=== PATIENT | male | born 1975 | race Caucasian/White ===

== ENCOUNTER 2021-06-08 21:02 | Emergency (ER) | payer OTHER ==
[~2021-06-08] VITALS: Ht 182.9 cm; Wt 90.9 kg
[2021-06-08] MEDS ORDERED: ACETAMINOPHEN 500 MG TABLET PO ONE (22:00)
[2021-06-08] MEDS ORDERED: diphenhydrAMINE 50 MG/ML VIAL IVP ONE (22:00)
[2021-06-08] MEDS ORDERED: IV NORMAL SALINE 1,000ML 1,000 ML IV ONE (22:00)
[2021-06-08] MEDS ORDERED: METOCLOPRAMIDE HCL 10 MG/2 ML VIAL. IVP ONE (22:00)
[2021-06-08] MEDS ORDERED: KETOROLAC 30 MG/ML VIAL. IVP ONE (22:00)
--- NOTE | 2021-06-08 22:05 | PHYS DOC ---
General Adult EDM: Chief Complaint: INSECT BITE HPI: HPI: 46-year-old male presents with fever, headache, insect bite of the left lower leg. Patient believes he was bit by a spider sometime yesterday. This morning he developed headache and fever. Has had a fever all day. He also has a dry intermittent cough. Patient was fully vaccinated against COVID-19 with his second shot in December. The patient has been taking ibuprofen and the fever improves but does not go away. Last dose was 6 hours ago. Review of Systems: Review of Systems: Constitutional: Fever, body aches. Eyes: Denies change in visual acuity HENT: Denies nasal congestion or sore throat Respiratory: Cough without shortness of breath Cardiovascular: Denies chest pain or edema GI: Denies abdominal pain, nausea, vomiting, bloody stools or diarrhea : Denies dysuria Musculoskeletal: Denies back pain or joint pain Integument: Insect bite medial left lower leg Neurologic: Headache. Denies focal weakness or sensory changes Endocrine: Denies polyuria or polydipsia Lymphatic: Denies swollen glands Psychiatric: Denies depression or anxiety Current Medications: Current Meds: Current Medications Medications (Trade) Dose Ordered Sig/Bell Start Time Stop Time Status Last Admin Dose Admin Acetaminophen (Tylenol) 1,000 mg 1X ONCE 06/08/21 22:00 06/08/21 22:01 UNV Diphenhydramine HCl (Benadryl) 25 mg 1X ONCE 06/08/21 22:00 06/08/21 22:01 UNV Ketorolac Tromethamine (Toradol 30mg Vial) 30 mg 1X ONCE 06/08/21 22:00 06/08/21 22:01 UNV Metoclopramide HCl (Reglan Vial) 10 mg 1X ONCE 06/08/21 22:00 06/08/21 22:01 UNV Sodium Chloride 1,000 ml @ 1,000 mls/hr 1X ONCE 06/08/21 22:00 06/08/21 22:59 UNV Physical Exam: PE: Constitutional: Well developed, well nourished, no acute distress, non-toxic appearance. [] HENT: Normocephalic, atraumatic, bilateral external ears normal, oropharynx moist, no oral exudates, nose normal. [] Eyes: PERRLA, EOMI, conjunctiva normal, no discharge. [] Neck: Normal range of motion, no tenderness, supple, no stridor. [] Cardiovascular:Heart rate regular rhythm, no murmur [] Lungs & Thorax: Bilateral breath sounds clear to auscultation [] Abdomen: Bowel sounds normal, soft, no tenderness, no masses, no pulsatile ma sses. [] Skin: Warm, dry, no erythema, no rash. [] Back: No tenderness, no CVA tenderness. [] Extremities: No tenderness, no cyanosis, no clubbing, ROM intact, no edema. [] Neurologic: Alert and oriented X 3, normal motor function, normal sensory function, no focal deficits noted. [] Psychologic: Affect normal, judgement normal, mood normal. [] EKG: EKG: [] Radiology/Procedures: Radiology/Procedures: [] Impressions: EXAMINATION: Chest radiograph. VIEWS: Single AP view COMPARISON: None INDICATION:46 years, Male, fever, cough. FINDINGS: Normal cardiomediastinal silhouette. No focal consolidation. No pleural effusion or pneumothorax. No acute osseous process. IMPRESSION: No acute cardiopulmonary process. Electronically signed by: Aydin Guzman DO (06/08/2021 11:03 PM) [facility] DICTATED AND SIGNED BY: AYDIN GUZMAN DO DATE: 06/08/212302 CC: SHAYY CUEVA DO; PCP,UNKNOWN ~MTH0 0 Heart Score: C/O Chest Pain: N/A Risk Factors: Risk Factors: DM, Current or recent (<one month) smoker, HTN, HLP, family history of CAD, obesity. Risk Scores: Score 0 - 3: 2.5% MACE over next 6 weeks - Discharge Home Score 4 - 6: 20.3% MACE over next 6 weeks - Admit for Clinical Observation Score 7 - 10: 72.7% MACE over next 6 weeks - Early Invasive Strategies Course & Med Decision Making: Course & Med Decision Making Pertinent Labs and Imaging studies reviewed. (See chart for details) The patient's chest x-ray is negative for acute findings. I will treat him with Rocephin in the emergency room and Keflex prescription due to the cellulitis around his insect bite. Patient's labs are significant for a white count of 3.9 with a left shift. Creatinine 1.5. The patient does appear clinically dry. He was given a liter of normal saline. I do not believe the insect bite is likely to be the patient's symptoms. This could be COVID-19. [] Rubion Disclaimer: Raeann Disclaimer: This electronic medical record was generated, in whole or in part, using a voice recognition dictation system. Departure Departure: Impression: Primary Impression: Cellulitis Qualified Codes: L03.116 - Cellulitis of left lower limb Additional Impression: Suspected COVID-19 virus infection Disposition: HOME / SELF CARE / HOMELESS Condition: STABLE Referrals: PCP,UNKNOWN (PCP) Patient Instructions: Cellulitis, [id number] Additional Instructions: You have been tested for or diagnosed with COVID-19. It is an infection caused by a new type of coronavirus. COVID-19 will cause cold-like or mild flu symptoms in most. It can cause more severe symptoms like problems breathing in some. There is no treatment for COVID-19. The body will clear the infection over time. Self-care will help to ease discomfort. Steps to Take: Self-Care Rest as needed. Healthy habits may help you feel better. Steps include: Choose healthy foods including fruits and vegetables. Drink water throughout the day. Get plenty of sleep each night. If you smoke, try to quit. It may ease breathing. Avoid alcohol. Keep Others Healthy The virus can spread to others. Droplets are released every time you sneeze or cough. The droplets can get into the mouth, nose, or eyes of people near you and lead to infection. To lower the chances of spreading COVID-19 to others: Stay at home until your doctor has said it is safe to leave. If you tested positive this will mean staying isolated until both of the following are true: At least 7 days have passed since the start of illness. You are free of fever for at least 72 hours without the use of medicine. During this time: - Avoid public areas, events, or transportation. Do not return to work or school until your doctor has said it is safe to do so. - Call ahead if you need to go to a medical center. Let them know you may have COVID-19. It will help them guide you where to go. They may also ask you to wear a facemask when you come to the office. - If you call for emergency medical services, let them know you may have COVID- 19. While at home: - Try to avoid close contact with others. Stay about 6 feet away. - If possible, spend most of your time in a separate room from others. - Use a face mask if you will be in close contact with others such as sharing a room or vehicle. - Have someone wipe down common surfaces in the home. Use household dump motorman every day on areas like doorknobs, counters, or sinks. - Cough or sneeze into a tissue. Throw the tissue away right after use. If a tissue is not available, cough or sneeze into your elbow. - Wash your hands often. Wash them after sneezing or coughing. Use soap and water and wash for at least 20 seconds. Alcohol based hand pillowcase cleaner can be used if soap and water is not available. - Do not prepare food for others. Avoid sharing personal items like forks, spoons, or toothbrushes. - Avoid close contact with pets while you are sick. There is no evidence of the virus passing to pets. This is a safety step until more is known about this virus. Isolation can be frustrating. Social interaction can help. Keep in touch with friends and family through phone and tech options. You can still interact with others in your home, just keep a safe distance of about 6 feet. Follow-up: Your doctors office will check in with you to see if there are any changes in your health. You may be asked to keep track of symptoms to share with them. They will also let you know when you are clear to be in public again. Problems to Look Out For: Contact your doctor if your recovery is not going as you expect. Get emergency care if you have problems such as: - Trouble breathing - Nonstop chest pain or pressure - Changes in awareness, confusion, or problems waking - Lips or face have bluish color - Worsening of symptoms If you think you have an emergency, call for emergency medical services right away. As taken from [facility] Cephalexin (CEPHALEXIN) 500 Mg Tablet 1 TAB PO TID for cellulitis for 7 Days, #21 TAB Prov: SHAYY CUEVA DO 06/08/21 SHAYY CUVEA DO Jun 08, 2021 22:05
--- NOTE | 2021-06-08 23:06 | RAD ---
EXAMINATION: Chest radiograph. VIEWS: Single AP view COMPARISON: None INDICATION:46 years, Male, fever, cough. FINDINGS: Normal cardiomediastinal silhouette. No focal consolidation. No pleural effusion or pneumothorax. No acute osseous process. IMPRESSION: No acute cardiopulmonary process. Electronically signed by: Kody Fu DO (06/08/2021 11:03 PM) [facility]
[2021-06-08 23:30] LABS: BASO % 0 % (0-3); EOS % 0 % (0-3); HEMATOCRIT 43.4 % (39.0-53.0); HEMOGLOBIN 14.8 g/dL (13.0-17.5); LYMPH # 0.3 x10^3/uL (1.0-4.8); LYMPH % 7 % (24-48); MEAN CORPUSCULAR HEMOGLOBIN 32 pg (25-35); MEAN CORPUSCULAR HGB CONC 34 g/dL (31-37); MEAN CORPUSCULAR VOLUME 94 fL (79-100); MONO # 0.5 x10^3/uL (0.0-1.1); MONO % 14 % (0-9); NEUT # 3.1 x10^3uL (1.8-7.7); NEUT % 80 % (31-73); PLATELET COUNT 151 x10^3/uL (140-400); RED BLOOD COUNT 4.64 x10^6/uL (4.30-5.70); RED CELL DISTRIBUTION WIDTH 13.1 % (11.5-14.5); WHITE BLOOD COUNT 3.9 x10^3/uL (4.0-11.0)
[2021-06-08] MEDS ORDERED: IV NORMAL SALINE 50ML 50 ML ONE (23:31)
[2021-06-08] MEDS ORDERED: cefTRIAXone SODIUM 1 GM VIAL ONE (23:32)
[2021-06-08 23:40] LABS: CALCIUM 8.4 mg/dL (8.5-10.1); CREATININE 1.5 mg/dL (0.7-1.3); GFR 50.8; POTASSIUM 3.9 mmol/L (3.5-5.1)
[2021-06-08] MEDS ORDERED: CEPH500T PO (23:48)
[2021-06-08 23:51] LABS: ALBUMIN 3.4 g/dL (3.4-5.0); ALBUMIN/GLOBULIN RATIO 1.2 (1.0-1.7); TOTAL BILIRUBIN 0.6 mg/dL (0.2-1.0); TOTAL PROTEIN 6.2 g/dL (6.4-8.2)
[2021-06-09 00:08] VITALS: BP 112/64
--- NOTE | 2021-06-10 14:59 | NUR ---
IP: Informed pt of negative covid test. Pt verbalized understanding.
== END 2021-06-09 00:30 | disposition home or self-care (01) ==
LOC: ER 21:02
DX: L03.116 Cellulitis of left lower limb (principal); Z20.822 Contact with and (suspected) exposure to COVID-19; R51.9 Headache, unspecified
CPT/HCPCS: 71045; 80053; 83605; 85025; 87040; 96361; 96365; 96375; 99284; C9803; J0696; J1200; J1885; J2765; J7030; U0003

== ENCOUNTER 2021-06-12 18:10 | Emergency (ER) | payer OTHER ==
[~2021-06-12] VITALS: Ht 182.9 cm; Wt 90.9 kg
[~2021-06-12 18:10] MED LIST: CEPH500T PO
[2021-06-12 19:00] VITALS: BP 142/73
[2021-06-12] MEDS ORDERED: CEPHALEXIN 250 MG CAPSULE PO ONE (19:15)
[2021-06-12] MEDS ORDERED: SMZ/TMP 800/160MG TABLET. PO ONE (19:15)
[2021-06-12] MEDS ORDERED: CEPH500T PO (19:48)
[2021-06-12] MEDS ORDERED: SULF1TAB24 PO (19:48)
--- NOTE | 2021-06-12 19:48 | PHYS DOC ---
Past History Past Surgical History: Other Additional Past Surgical Histo: toe Alcohol Use: None General Adult EDM: Chief Complaint: WOUND CHECK HPI: HPI: Patient is a 46-year-old male coming in for a wound check. Patient was seen 4 days ago for a possible spider bite to his left calf. Was given a shot of Rocephin and started on clindamycin. Patient states he has been compliant with his medications. States he has had mildly increased in the erythema but no drainage. At the time was having fever and chills but denies any systemic complaints at this time. Has not had any purulent drainage from the wound. Review of Systems: Review of Systems: All other systems within normal limits except for as noted in the HPI Current Medications: Current Meds: Current Medications Medications (Trade) Dose Ordered Sig/Bell Start Time Stop Time Status Last Admin Dose Admin Cephalexin HCl (Keflex) 500 mg 1X ONCE 06/12/21 19:15 06/12/21 19:16 DC Trimethoprim/ Sulfamethoxazole (Bactrim Ds) 1 tab 1X ONCE 06/12/21 19:15 06/12/21 19:16 DC Allergies: Allergies: Allergies Coded Allergies Type Severity Reaction Last Updated Verified Penicillins Allergy Unknown 06/08/21 Yes cefazolin Allergy Unknown 06/09/21 Yes Physical Exam: PE: Constitutional: Well developed, well nourished, no acute distress, non-toxic appearance. [] HENT: Normocephalic, atraumatic, bilateral external ears normal, nose normal. [] Eyes: PERRLA, conjunctiva normal, no discharge. [] Neck: No rigidity, supple, no stridor. [] Cardiovascular: Regular rate and rhythm, brisk cap refill [] Lungs & Thorax: Non labored symmetric respirations, no tachypnea or respiratory distress [] Abdomen: Soft, nondistended. Skin: Warm, erythema to posterior calf, no lymphadenitis. No purulence or drainage. Has a central area of grayish discoloration. Back: Unremarkable Extremities: No deformities, range of motion grossly intact, no lower extremity edema [] Neurologic: Alert and oriented X 3, no focal deficits noted. [] Psychologic: Affect normal, judgement normal, mood normal. [] EKG: EKG: [] Radiology/Procedures: Radiology/Procedures: [] Heart Score: C/O Chest Pain: No Risk Factors: Risk Factors: DM, Current or recent (<one month) smoker, HTN, HLP, family history of CAD, obesity. Risk Scores: Score 0 - 3: 2.5% MACE over next 6 weeks - Discharge Home Score 4 - 6: 20.3% MACE over next 6 weeks - Admit for Clinical Observation Score 7 - 10: 72.7% MACE over next 6 weeks - Early Invasive Strategies Course & Med Decision Making: Course & Med Decision Making Reviewing patient's previous visits he had a low white count and a low lymphocyte count. Patient's absolute lymphocyte count 4 days ago was 273. Patient states that he has no known hematologic disorders and believes that the [employer] test some regularly for HIV. Denies any high risk sexual encounters. Discussed checking for HIV due to the low white count to rule it out as a possible reason for his low lymphocyte count and susceptibility to infection. Patient denies any known history of MRSA. Patient has a documented history of a penicillin allergy that results in a rash. Discussed changing antibiotics to a more broad-spectrum antibiotic due to a possible resistance to clindamycin. Patient agrees with plan we discussed extensive return precautions. Dragon Disclaimer: Dragjazmyn Disclaimer: This electronic medical record was generated, in whole or in part, using a voice recognition dictation system. Departure Departure: Impression: Primary Impression: Cellulitis Disposition: 01 HOME / SELF CARE / HOMELESS Condition: STABLE Referrals: PCP,UNKNOWN (PCP) Patient Instructions: Cellulitis Scripts Cephalexin (CEPHALEXIN) 500 Mg Tablet 1 TAB PO TID for antibiotic for 10 Days, #30 TAB Prov: FRANCISCO J PETERSON MD 06/12/21 Sulfamethoxazole/Trimethoprim (BACTRIM DS TABLET) 1 Each Tablet 1 TAB PO BID for antibiotic for 10 Days, #20 TAB 0 Refills Prov: FRANCISCO J PETERSON MD 06/12/21 FRANCISCO J PETERSON MD Jun 12, 2021 19:48
== END 2021-06-12 20:25 | disposition home or self-care (01) ==
LOC: ER 18:10
DX: L03.116 Cellulitis of left lower limb (principal); Z88.0 Allergy status to penicillin; Z88.8 Allergy status to other drugs, medicaments and biological substances
CPT/HCPCS: 86703; 99283

== ENCOUNTER 2021-06-15 13:54 | Emergency (ER) | payer OTHER ==
[~2021-06-15] VITALS: Ht 182.9 cm; Wt 90.9 kg
[~2021-06-15 13:54] MED LIST changes: +SULF1TAB24 PO
--- NOTE | 2021-06-15 14:27 | PHYS DOC ---
Past History Past Surgical History: Other Additional Past Surgical Histo: toe Alcohol Use: None General Adult HPI: HPI: Patient is a 46-year-old male coming in for worsening cellulitis on his left lower leg. Patient was bitten by a brown recluse 1 week ago, did find the spider for identification. Patient was initially seen and started on clindamycin but symptoms been getting worse and 3 days ago was seen again in this ED and his antibiotics were changed to Keflex and Bactrim. Patient denies any purulent drainage. Is no streaking up his thigh. Had a temperature of 100 today. On previous visits know that he had a low white blood cell count and low lymphocyte count. HIV test since has come back negative. 7 days ago patient had blood cultures drawn that have shown no growth at 5 days. Review of Systems: Review of Systems: All other systems within normal limits except for as noted in the HPI Allergies: Allergies: Allergies Coded Allergies Type Severity Reaction Last Updated Verified Penicillins Allergy Unknown 06/08/21 Yes cefazolin Allergy Unknown 06/09/21 Yes Physical Exam: PE: Constitutional: Well developed, well nourished, no acute distress, non-toxic appearance. [] HENT: Normocephalic, atraumatic, bilateral external ears normal, nose normal. [] Eyes: PERRLA, conjunctiva normal, no discharge. [] Neck: No rigidity, supple, no stridor. [] Cardiovascular: Regular rate and rhythm, brisk cap refill [] Lungs & Thorax: Non labored symmetric respirations, no tachypnea or respiratory distress [] Abdomen: Soft, nondistended. Skin: Warm, area of erythema and induration on left calf with streaking lymphadenitis up left thigh. Centralized approximately 3 cm triangular-shaped area of dusky rao area with 1 cm bullae containing clear fluid Back: Unremarkable Extremities: No deformities, range of motion grossly intact, no lower extremity edema [] Neurologic: Alert and oriented X 3, no focal deficits noted. [] Psychologic: Affect normal, judgement normal, mood normal. [] EKG: EKG: [] Radiology/Procedures: Radiology/Procedures: [address] [address] IMAGING REPORT Signed PATIENT: IRINA FRANCO ACCOUNT: [id number] : 1975 LOCATION: ER AGE: 46 SEX: M EXAM STATUS: REG ER ORD. PHYSICIAN: FRANCISCO J PETERSON MD REASON: infection PROCEDURE: TIBIA FIBULA LEFT XR LT TIBIA + FIBULA History: Reason: infection / Spl. Instructions: / History: Technique: 2 views left tibia and fibula. Comparison: None. Findings: Normal alignment. No acute fracture. Left lower extremity soft tissue swelling. No radiographic evidence of osteomyelitis. No subcutaneous gas. Impression: 1. No acute osseous abnormality. 2. Mild left lower extremity soft tissue swelling. Electronically signed by: Pino Zamora DO (06/15/2021 3:06 PM) [id number] DICTATED AND SIGNED BY: PINO ZAMORA DO DATE: 06/15/211501 CC: YEIMY RODRÍGUEZ DO; FRANCISCO J PETERSON MD ~MTH0 0 [] Heart Score: C/O Chest Pain: No Risk Factors: Risk Factors: DM, Current or recent (<one month) smoker, HTN, HLP, family history of CAD, obesity. Risk Scores: Score 0 - 3: 2.5% MACE over next 6 weeks - Discharge Home Score 4 - 6: 20.3% MACE over next 6 weeks - Admit for Clinical Observation Score 7 - 10: 72.7% MACE over next 6 weeks - Early Invasive Strategies Course & Med Decision Making: Course & Med Decision Making Patient with worsening cellulitis and marked lymphadenitis up right thigh. Patient has been on different medications outpatient with worsening of his symptoms. Will admit for outpatient treatment failure. Transferred to [place] for infectious disease consult Dr. Richards accepting Raeann Disclaimer: Raeann Disclaimer: This electronic medical record was generated, in whole or in part, using a voice recognition dictation system. Departure Departure: Impression: Primary Impression: Brown recluse spider bite Additional Impression: Cellulitis of left lower extremity Disposition: 02 SHORT TERM HOSPITAL Condition: STABLE Referrals: YEIMY RODRÍGUEZ DO (PCP) FRANCISCO J PETERSON MD Jun 15, 2021 14:27
--- NOTE | 2021-06-15 15:08 | RAD ---
XR LT TIBIA + FIBULA History: Reason: infection / Spl. Instructions: / History: Technique: 2 views left tibia and fibula. Comparison: None. Findings: Normal alignment. No acute fracture. Left lower extremity soft tissue swelling. No radiographic evide nce of osteomyelitis. No subcutaneous gas. Impression: 1. No acute osseous abnormality. 2. Mild left lower extremity soft tissue swelling. Electronically signed by: Pino Zamora DO (06/15/2021 3:06 PM) [id number]
[2021-06-15 15:18] LABS: BASO # 0.1 x10^3/uL (0.0-0.2); BASO % 1 % (0-3); EOS # 0.4 x10^3/uL (0.0-0.7); EOS % 5 % (0-3); HEMATOCRIT 43.2 % (39.0-53.0); HEMOGLOBIN 14.7 g/dL (13.0-17.5); LYMPH # 1.7 x10^3/uL (1.0-4.8); LYMPH % 20 % (24-48); MEAN CORPUSCULAR HEMOGLOBIN 32 pg (25-35); MEAN CORPUSCULAR HGB CONC 34 g/dL (31-37); MEAN CORPUSCULAR VOLUME 93 fL (79-100); MONO # 0.8 x10^3/uL (0.0-1.1); MONO % 9 % (0-9); NEUT # 5.6 x10^3uL (1.8-7.7); NEUT % 66 % (31-73); PLATELET COUNT 272 x10^3/uL (140-400); RED BLOOD COUNT 4.65 x10^6/uL (4.30-5.70); RED CELL DISTRIBUTION WIDTH 12.8 % (11.5-14.5); WHITE BLOOD COUNT 8.6 x10^3/uL (4.0-11.0)
[2021-06-15 15:26] LABS: CALCIUM 8.9 mg/dL (8.5-10.1); CREATININE 1.2 mg/dL (0.7-1.3); GFR 65.8; POTASSIUM 3.7 mmol/L (3.5-5.1)
[2021-06-15 15:31] LABS: ALBUMIN 3.9 g/dL (3.4-5.0); ALBUMIN/GLOBULIN RATIO 1.1 (1.0-1.7); TOTAL BILIRUBIN 0.4 mg/dL (0.2-1.0); TOTAL PROTEIN 7.4 g/dL (6.4-8.2)
[2021-06-15] MEDS ORDERED: VANCOMYCIN 2 GM in IV NORMAL SALINE 500ML 500 ML IV ONE (16:15)
[2021-06-15] MEDS ORDERED: KETOROLAC 15 MG/ML VIAL. IVP ONE (17:00)
[2021-06-15 19:41] VITALS: BP 118/82
== END 2021-06-15 20:00 | disposition short-term general hospital (02) ==
LOC: ER 13:54
DX: T63.331A Toxic effect of venom of brown recluse spider, accidental (unintentional), initial encounter (principal); L03.116 Cellulitis of left lower limb; Z20.822 Contact with and (suspected) exposure to COVID-19; Y92.89 Other specified places as the place of occurrence of the external cause
CPT/HCPCS: 36415; 73590; 80053; 85025; 87040; 96365; 96366; 96375; 99285; J1885; J3370; J7040; U0003